=== PATIENT | female | born 1995 | race Two or more races ===

== ENCOUNTER 2018-07-08 23:12 | Inpatient (IN) | payer OTHER ==
[~2018-07-08] VITALS: Ht 160 cm; Wt 1989.0 kg
[2018-07-08] MEDS ORDERED: NIFE60TA3 PO (23:39)
[2018-07-08] MEDS ORDERED: OBSTETRIX EC C1 EACH PO (23:39)
== END 2018-07-12 15:11 | disposition home or self-care (01) | DRG 788 ==
LOC: LDR 23:12 → SURG-SUITE 23:12 → EDBD 23:12 → SURG-SUITE 07-09 09:21
PROVIDERS: Obstetrics & Gynecology Maternal & Fetal Medicine
PROC: 4A1HXCZ Monitoring of Products of Conception, Cardiac Rate, External Approach (ICD-10-PCS; 2018-07-08)
PROC: 3E033VJ Introduction of Other Hormone into Peripheral Vein, Percutaneous Approach (ICD-10-PCS; 2018-07-09)
PROC: 10D00Z1 Extraction of Products of Conception, Low, Open Approach (ICD-10-PCS; principal; 2018-07-09 07:00)
DX: O62.0 Primary inadequate contractions (principal); O30.043 Twin pregnancy, dichorionic/diamniotic, third trimester; Z3A.36 36 weeks gestation of pregnancy; Z37.0 Single live birth